=== PATIENT | male | born 1985 | race Caucasian/White ===

== ENCOUNTER 2017-05-22 21:42 | Emergency (ER) | payer OTHER ==
[2017-05-22 22:07] VITALS: BP 115/65; PULSE 70; TEMP 98.2; BMI 25.8
[2017-05-22] MEDS ORDERED: methylPREDNISolone NA SUCC 125 MG/2 ML VIAL IVPUSH ONE (22:26)
[2017-05-22] MEDS ORDERED: methylPREDNISolone NA SUCC 125 MG/2 ML VIAL ONE (22:27)
--- NOTE | 2017-05-22 22:50 | PDOC ---
History of Present Illness <Primo Ewing - Last Filed: 05/22/17 23:19> - History of Present Illness Initial Comments: 05/22/17 22:47 "The patient is a 31 year old male, with no significant past medical history, who presents to the emergency department with urticaria and a scratchy sensation in his throat. The patient states that he started eating dinner 6 hours ago but has been picking at desserts. He notes that he had a variety of foods and desserts. About 1 hour prior to arrival to ER, he began to break out in hives, with itching to his arms, chest, back, face, and legs. The patient reports taking two Benadryl with mild relief. The patient states he has had approx. 6 previous similar allergic reactions after eating over the past 6 months. The patient states he visited an [employer] Graduate [employer]. However, the testing did not determine the allergen. Pt denies any tongue or lip swelling. Denies difficulty breathing or swallowing. Denies voice hoarseness. Denies vomiting/ diarrhea. He denies any recent fevers, chills, headache or dizziness. He denies any recent nausea, vomit, diarrhea or constipation. He denies any recent chest pain or shortness of breath. Past surgical history: None reported. Primary Care Physician: Patient reports he does not have a PCP. " <Osman Senior - Last Filed: 05/23/17 01:03> - General Chief Complaint: Allergic Reaction Stated Complaint: ALLERGIC REACTION Time Seen by Provider: 05/22/17 22:09 Past History <Primo Ewing - Last Filed: 05/22/17 23:19> - Past Medical History COPD: No Thyroid Disease: No - Suicide/Smoking/Psychosocial Hx Smoking History: Never smoked Have you smoked in the past 12 months: No Information on smoking cessation initiated: No Hx Alcohol Use: No Drug/Substance Use Hx: No Substance Use Type: None <Osman Senior - Last Filed: 05/23/17 01:03> - Past Medical History Allergies/Adverse Reactions: Allergies Allergy/AdvReac Type Severity Reaction Status Date / Time No Known Allergies Allergy Verified 05/22/17 22:02 Home Medications: Ambulatory Orders Prednisone [Prednisone 50 MG TABLETS] 50 mg PO DAILY #4 tablet 05/23/17 Review of Systems - Review of Systems Comments:: 05/22/17 22:49 "GENERAL/CONSTITUTIONAL: No fever or chills. No weakness. HEAD, EYES, EARS, NOSE AND THROAT: No change in vision. No ear pain or discharge. No sore throat. CARDIOVASCULAR: No chest pain or shortness of breath. RESPIRATORY: No cough, wheezing, or hemoptysis. GASTROINTESTINAL: No nausea, vomiting, diarrhea or constipation. GENITOURINARY: No dysuria, frequency, or change in urination. MUSCULOSKELETAL: No joint or muscle swelling or pain. No neck or back pain. SKIN: +Urticaria. NEUROLOGIC: No headache, vertigo, loss of consciousness, or change in strength/ sensation. ENDOCRINE: No increased thirst. No abnormal weight change. HEMATOLOGIC/LYMPHATIC: No anemia, easy bleeding, or history of blood clots. ALLERGIC/IMMUNOLOGIC: +Urticaria. " <Osman Senior - Last Filed: 05/23/17 01:03> *Physical Exam - Vital Signs Last Vital Signs Temp Pulse Resp BP Pulse Ox 98.2 F 70 18 115/65 100 05/22/17 22:02 05/22/17 22:02 05/22/17 22:02 05/22/17 22:02 05/22/17 22:02 <Primo Ewing - Last Filed: 05/22/17 23:19> - Vital Signs Last Vital Signs Temp Pulse Resp BP Pulse Ox 98.2 F 70 18 115/65 100 05/22/17 22:02 05/22/17 22:02 05/22/17 22:02 05/22/17 22:02 05/22/17 22:02 - Physical Exam Comments: 05/22/17 22:49 "GENERAL: Awake, alert, and fully oriented, in no acute distress HEAD: No signs of trauma EYES: PERRLA, EOMI, sclera anicteric, conjunctiva clear ENT: No uvula or tongue swelling, Auricles normal inspection, hearing grossly normal, nares patent, oropharynx clear without exudates. Moist mucosa NECK: Nontender, no stepoffs, Normal ROM, supple, no lymphadenopathy, JVD, or masses LUNGS: Breath sounds equal, clear to auscultation bilaterally. No stridor, No wheezes, and no crackles HEART: Regular rate and rhythm, normal S1 and S2, no murmurs, rubs or gallops ABDOMEN: Soft, nontender, normoactive bowel sounds. No guarding, no rebound. No masses EXTREMITIES: Normal range of motion, no edema. No clubbing or cyanosis. No cords, erythema, or tenderness NEUROLOGICAL: Cranial nerves II through XII intact. 5/5 strength and sensation in all extremities, Normal speech, normal gait SKIN: +maculopapular rash to chest, arms, back, legs. Warm, Dry, normal turgor. " <Osman Senior - Last Filed: 05/23/17 01:03> ED Treatment Course - Medications Given in the ED: ED Medications Discontinued Medications Generic Name Dose Route Start Last Admin Trade Name Freq PRN Reason Stop Dose Admin Diphenhydramine HCl 50 mg 05/22/17 22:26 05/22/17 22:44 Benadryl Injection - IVPUSH 05/22/17 22:27 50 mg ONCE ONE Administration Methylprednisolone Sodium Succinate 125 mg 05/22/17 22:26 05/22/17 22:44 Solu-Medrol - IVPUSH 05/22/17 22:27 125 mg ONCE ONE Administration <Primo Ewing - Last Filed: 05/22/17 23:19> - Medications Given in the ED: ED Medications Discontinued Medications Generic Name Dose Route Start Last Admin Trade Name Freq PRN Reason Stop Dose Admin Diphenhydramine HCl 50 mg 05/22/17 22:26 05/22/17 22:44 Benadryl Injection - IVPUSH 05/22/17 22:27 50 mg ONCE ONE Administration Methylprednisolone Sodium Succinate 125 mg 05/22/17 22:26 05/22/17 22:44 Solu-Medrol - IVPUSH 05/22/17 22:27 125 mg ONCE ONE Administration <Osman Senior - Last Filed: 05/23/17 01:03> Medical Decision Making - Medical Decision Making 05/22/17 22:50 31 M with allergic reaction. No evidence of airway involvement on exam or history. - Benadryl, steroids - Monitor in ER - Reassess 05/23/17 00:57 Pt reassessed - now with improvement in hives. Denies any swelling of face or tongue, no difficulty breathing or swallowing. Vitals normal. Pt well appearing. Counseled on return precautions and need to f/u with rotor coil taper. <Osman Senior - Last Filed: 05/23/17 01:03> *DC/Admit/Observation/Transfer - Attestations Scribe Attestion: 05/22/17 23:19 Documentation prepared by Primo Ewing, acting as medical editor for Osman Senior MD. <Primo Ewing - Last Filed: 05/22/17 23:19> - Attestations Physician Attestion: 05/23/17 01:02 I, Dr. Osman Senior MD, attest that this document has been prepared under my direction and personally reviewed by me in its entirety. I further attest, that it accurately reflects all work, treatment, procedures and medical decision -making performed by me. <Osman Senior - Last Filed: 05/23/17 01:03> Diagnosis at time of Disposition: Allergic reaction - Discharge Dispostion Disposition: HOME - Prescriptions Prescriptions: Prednisone [Prednisone 50 MG TABLETS] 50 mg PO DAILY #4 tablet - Referrals Referrals: STAFF,NOT ON [Primary Care Provider] - - Patient Instructions Printed Discharge Instructions: DI for Food Allergy Additional Instructions: Take the prednisone once daily as prescribed for 4 days. Pick it up at the [facility]. If you experience any worsening symptoms or any concerning symptoms, such as swelling of your face, lips, tongue, or difficulty breathing, return to the ER immediately. Keep your epi-pen on you and administer it if you experience any of the above symptoms. Follow up with your rotor coil taper within 1-2 weeks for further work up of your allergic reactions.
== END 2017-05-23 01:10 | disposition home or self-care (01) ==
LOC: JER 21:42
PROC: 3E0333Z Introduction of Anti-inflammatory into Peripheral Vein, Percutaneous Approach (ICD-10-PCS; principal; 2017-05-22)
PROC: 3E033GC Introduction of Other Therapeutic Substance into Peripheral Vein, Percutaneous Approach (ICD-10-PCS; 2017-05-22)
DX: L50.0 Allergic urticaria (principal); T78.40XA Allergy, unspecified, initial encounter
CPT/HCPCS: 99281-25